=== PATIENT | female | born 1985 | race American Indian/Alaskan Native ===

== ENCOUNTER 2016-09-16 00:44 | Emergency (ER) | payer MEDICAID ==
--- NOTE | 2016-09-16 05:35 | Emergency Department Report ---
HPI - General Chief Complaint: Extremity Injury, Upper Time Seen by Provider: 09/16/16 05:34 - HPI HPI: Patient is a 30-year-old female currently at 35 weeks and 3 days presents to ED stay in she cannot get her ring of her finger because of finger swelling. Patient states today she tried to take off her ring on her right index finger and could not take the because her finger was swollen. Patient states she started experiencing pain so she came to the ER to have it removed. Patient reports good movement, Patient denies vaginal bleeding or lifting of fluids or any complications the . Patient states she is simply here to have the ring removed from her index finger. Patient denies fever/chills/nausea/vomiting/abdominal pain/diarrhea or any other problems ED Past Medical Hx - Past Medical History Previous Medical History?: Yes Additional medical history: anemia - Surgical History Past Surgical History?: Yes Additional Surgical History: right fallopian tube removed - Social History Smoking Status: Never Smoker - Medications Home Medications: Home Medications Medication Instructions Recorded Confirmed Last Taken Type Iron,Carbonyl/Vit C/Vit B12/FA 1 tab PO DAILY 09/16/16 09/16/16 09/15/16 History [Iron 100 Plus Tablet] Vit No.130/Iron/FA 1 tab PO DAILY 09/16/16 09/16/16 09/15/16 History [ Tablet] ED Review of Systems ROS: Stated complaint: RT HAND RING FINGER SWOLLEN W/PAIN Other details as noted in HPI Constitutional: denies: chills, fever Eyes: denies: eye pain, eye discharge, vision change ENT: denies: ear pain, throat pain Respiratory: denies: cough, shortness of breath, wheezing Cardiovascular: denies: chest pain, palpitations Endocrine: no symptoms reported. denies: flushing, increased hunger, increased urine Gastrointestinal: denies: abdominal pain, nausea, diarrhea, constipation, melena Genitourinary: denies: urgency, dysuria, frequency, hematuria, discharge Musculoskeletal: denies: back pain, joint swelling, arthralgia, myalgia Skin: denies: rash, lesions Neurological: denies: headache, weakness, numbness, paresthesias, confusion, abnormal gait, vertigo Psychiatric: denies: anxiety, depression, suicidal thoughts Hematological/Lymphatic: denies: easy bleeding, easy bruising Physical Exam - Physical Exam Vital Signs: Vital Signs 09/16/16 09/16/16 01:39 04:04 Temperature 97.9 F 97.9 F Pulse Rate 58 L 58 L Respiratory 18 18 Rate Blood Pressure 106/69 Blood Pressure 106/69 [Left] O2 Sat by Pulse 98 98 Oximetry Physical Exam: GENERAL: Alert and oriented x3, no apparent distress, Normal Gait, atraumatic. HEAD: Head is normocephalic and a-traumatic. MOUTH:Mouth is well hydrated and without lesions. Patent airways. NECK: Supple. Non edematous, No carotid bruits. No lymphadenopathy or thyromegaly. LUNGS: Symetrical with respiration, No wheezing, no rales or crackles, CTAB. HEART: S1, S2 present, regular rate and rhythm without murmur, no rubs, no gallops. ABDOMEN: Gravid ,No organomegaly was noted,Positive bowel sounds, soft, and non- distended. . Nontender to palpation on all Quadrants, NO CVA tenderness. EXTREMITIES/MUSCULOSKELETAL: No cyanosis, clubbing, rash, lesions or edema. Full ROM bilaterally. UE/LE Pulses 2+ bilaterally. Fingers swollen bilaterally. Tight circular ring on right index finger. NEUROLOGIC: No focal Deficit, Cranial nerves II through XII are grossly intact. No loss of sensation PSYCHIATRIC: Mood is congruent with affect, denies suicidal or homicidal ideations. SKIN: Warm and dry, No lesions, No ulceration or induration present. ED Course Vital Signs 09/16/16 09/16/16 01:39 04:04 Temperature 97.9 F 97.9 F Pulse Rate 58 L 58 L Respiratory 18 18 Rate Blood Pressure 106/69 Blood Pressure 106/69 [Left] O2 Sat by Pulse 98 98 Oximetry ED Medical Decision Making - Medical Decision Making 30-year-old female presents for encounter of Ring removal ED course: Right index ray was cut off with a ring cutter. Patient tolerated procedure well Left ring finger did not slide off after using lube. Patient started experiencing pain while trying to take they're arranging. Procedure stopped. Ring could not be caught with a ring cutter as it was a thick titanium ring. Patient states ring finger is not as swollen and is not causing as much pain as the index finger. Discussed with patient to way to the morning and tried to take out the remaining after swelling has gone down. Critical care attestation.: If time is entered above; I have spent that time in minutes in the direct care of this critically ill patient, excluding procedure time. ED Disposition Clinical Impression: Swelling of finger, right, Normal intrauterine in third trimester Disposition: DISCHARGED TO HOME OR SELFCARE Is pt being admited?: No Does the pt Need Aspirin: No Condition: Stable Additional Instructions: Avoid wearing rings for the remainder of the . Referrals: PRIMARY CARE, [Primary Care Provider] - 3-5 Days Forms: Accompanied Note, Work/School Release Form(ED) Time of Disposition: 06:19
[2016-09-16] MEDS ORDERED: FLEXERIL PO ONE (05:52)
[2016-09-16] MEDS ORDERED: MOTRIN PO ONE (05:52)
[2016-09-16 06:45] VITALS: BP 110/62
== END 2016-09-16 06:46 | disposition home or self-care (01) ==
LOC: ED 00:44
DX: O26.893 Other specified pregnancy related conditions, third trimester (principal); M79.89 Other specified soft tissue disorders; D64.9 Anemia, unspecified; Z88.8 Allergy status to other drugs, medicaments and biological substances
CPT/HCPCS: 99282